=== PATIENT | male | born 1970 | race Caucasian/White ===

== ENCOUNTER 2020-09-07 21:07 | Emergency (ER) | payer OTHER, SELFPAY ==
[2020-09-07 21:13] VITALS: BP 181/94; PULSE 63; RESP 18; TEMP 36.6; O2SAT 99
--- NOTE | 2020-09-07 22:31 | PC.NURSE ---
pt walked out of facility, states he cant wait anymore. states he is going to another hospital. pt informed that he can return to the ED at any time for evaluation.
== END 2020-09-07 22:35 | disposition left against medical advice (07) ==
LOC: ANHED 22:55
PROVIDERS: PCP Internal Medicine
DX: T15.92XA Foreign body on external eye, part unspecified, left eye, initial encounter (principal)
CPT/HCPCS: 99199

== ENCOUNTER 2021-01-28 10:09 | Inpatient (IN) | payer SELFPAY ==
[2021-01-28] VITALS (12 sets, daily range): BP systolic 126–138; BP diastolic 57–92; PULSE 66–92; RESP 16–20; TEMP 35.7–38; O2SAT 96–100; BMI 27.7
--- NOTE | ~2021-01-28 | XR_ITS ---
EXAMINATION: XR elbow RT min 3V DATE: 01/28/2021 11:28 INDICATION: Erythema, swelling and limited range of motion. TECHNIQUE: Anteroposterior, two oblique and lateral views of the right elbow were obtained. COMPARISON: None. FINDINGS: Alignment is normal. No fracture. Joint spaces are normal. No cortical erosions. No right elbow joint effusion. Tiny olecranon enthesophyte. Subtle soft tissue calcifications along the medial and latera l epicondylar origins of the common flexor and extensor tendon wads respectively. Diffuse nonspecific soft tissue swelling with subcutaneous edema extending up to 10 cm approximately from the elbow and throughout the proximal to mid forearm. No radiopaque foreign bodies or soft tissue gas. IMPRESSION: 1. Nonspecific diffuse soft tissue swelling about the elbow extending from the distal upper arm throu gh the midforearm suggestive of cellulitis. No acute osseous abnormality, radiopaque foreign bodies o r soft tissue gas. 2. Likely enthesopathy with subtle calcification at the medial and lateral epicondylar origin of the common flexor and extensor tendon wads respectively. Reviewed, dictated and finalized at location B. IMPRESSION: 1. Nonspecific diffuse soft tissue swelling about the elbow extending from the distal upper arm through the midforearm suggestive of cellulitis. No acute osse ous abnormality, radiopaque foreign bodies or soft tissue gas. 2. Likely enthesopathy with subtle calcification at the medial and lateral epic ondylar origin of the common flexor and extensor tendon wads respectively.
--- NOTE | ~2021-01-28 | CT_ITS ---
EXAMINATION: CT UE RT wo con DATE: 01/30/2021 10:47 INDICATION: Right forearm cellulitis. TECHNIQUE: Computed tomography (CT) of the right upper limb was performed without intravenous contras t. Automated exposure control and iterative reconstruction technique were employed. The dose-length p roduct was 784.19 mGy-cm. COMPARISON: Right elbow radiographs 01/28/2021 FINDINGS: Bone alignment is normal. No fracture. 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 There are enthesophytes at the medial and lateral humeral epicondyles. No elbow joint effusion. Ther e is subcutaneous edema in the upper arm and forearm. IMPRESSION: 1. Extensive subcutaneous edema in right upper limb. No drainable fluid collection. Reviewed, dictated and finalized at location A. IMPRESSION: 1. Extensive subcutaneous edema in right upper limb. No drainable fluid collect ion.
[2021-01-28] MEDS: SODIUM CHLORIDE 0.9% IV 1,000 ML 999 ML IV CONT (11:05)
[2021-01-28] MEDS: MORPHINE SULFATE (*CRX) 4 MG/ML INJ IV PUSH (11:35)
[2021-01-28 11:42] LABS: Basophils Absolute Auto 0.1 K/mm3 (0.0-0.1); Basophils Percent Auto 0.5 % (0.2-1.2); Eosinophils Absolute Auto 0.1 K/mm3 (0-0.3); Eosinophils Percent Auto 1.4 % (0-4.4); Hematocrit 37.5 % (42.0-52.0); Hemoglobin 13.1 g/dL (14.0-18.0); Immature Granulocyte Absolute 0.03 K/mm3 (0.00-0.031); Immature Granulocyte Percent A 0.3 % (0-0.5); Lymphocytes Absolute Auto 0.94 K/mm3 (0.9-3.2); Lymphocytes Percent Auto 10.1 % (18.3-44.2); Mean Corpuscular HGB Conc 34.9 g/dl (32-36); Mean Corpuscular Volume 91.5 fl (80-100); Mean Platelet Volume 10.8 fl (7.4-10.4); Monocytes Absolute Auto 0.9 K/mm3 (0.1-0.6); Monocytes Percent Auto 9.4 % (2.6-8.5); Neutrophils Absolute Auto 7.3 K/mm3 (1.3-6.7); Neutrophils Percent Auto 78.3 % (45.5-73.1); Platelet Count Result 161 k/mm3 (150-375); Red Cell Distribution Width 11.9 % (11.5-14.5); White Blood Count 9.3 K/mm3 (4.5-10.0)
[2021-01-28 12:02] LABS: Alanine Aminotransferase 15 U/L (4-50); Albumin Level 3.7 g/dL (3.5-5.1); Alkaline Phosphatase 51 U/L (38-126); Anion Gap 4 mmol/L (8-16); Aspartate Amino Transferase 19 U/L (17-59); Bilirubin,Total 0.4 mg/dL (0.2-1.3); Blood Urea Nitrogen 17 mg/dL (9-20); Calcium 8.6 mg/dL (8.4-10.2); Carbon Dioxide 28 mmol/L (22-30); Chloride 107 mmol/L (98-107); Estimated CRCL calculation 107 ml/min; Estimated Glomerular Filt Rate > 60; Glucose 135 mg/dL (75-110); Potassium 4.1 mmol/L (3.4-5.0); Sodium 139 mmol/L (137-145)
[2021-01-28 12:08] LABS: Erythrocyte Sedimentation Rate 53 mm/hr (0-20)
[2021-01-28] MEDS: ceFAZolin 2 GM/D5W 50 ML 2 GM/50 ML BAG IVPB ×2 (12:32→22:23)
--- NOTE | 2021-01-28 12:34 | ED.GENADULT ---
HPI - General Adult General Chief complaint: Extremity Injury, Upper <Byron Lentz PA-C - Last Filed: 01/28/21 12:41> Stated complaint: elbow swelling <ELIZABET Duffy Last Filed: 01/28/21 12:41> Time Seen by Provider: 01/28/21 10:52 <ELIZABET Duffy Last Filed: 01/28/21 12:41> Source: patient <ELIZABET Duffy Last Filed: 01/28/21 12:41> Mode of arrival: ambulatory <Byron Lentz PA-C - Last Filed: 01/28/21 12:41> Limitations: no limitations <Byron Lentz PA-C - Last Filed: 01/28/21 12:41> History of Present Illness HPI narrative: Patient is a 50-year-old male who presents with red tender swollen right upper extremity at the level of the elbow began at the elbow and has worsened each day 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 Swelling began Wednesday. Patient denies fever vomiting similar occurrence in the past has not been seen for this complaint <Byron Lentz PA-C - Last Filed: 01/28/21 12:41> Related Data Home medications: Home Medications Medication Instructions Recorded Confirmed No Home Medications 01/28/21 01/28/21 <Byron Lentz PA-C - Last Filed: 01/28/21 12:41> Allergies/adverse reactions: Allergies Allergy/AdvReac Type Severity Reaction Status Date / Time No Known Allergies Allergy Unverified 04/22/12 23:59 <Byron Lentz PA-C - Last Filed: 01/28/21 12:41> Review of Systems Review of Systems: All systems reviewed & are unremarkable except as noted in HPI and below <Byron Lentz PA-C - Last Filed: 01/28/21 12:41> PMFSH Social History Social History: Social History Smoking status: Never smoker Alcohol intake: current Gender identity (if verbalized by the patient): Male <Byron Lentz PA-C - Last Filed: 01/28/21 12:41> Exam Narrative: Exam Narrative: GENERAL: Well-appearing, well-nourished, and in no acute distress. HEAD: Normocephalic, atraumatic. EYES: PERRLA and EOMI. ENT: Nares clear, no rhinorrhea or epistaxis. Mucous membranes moist. CHEST: Clear to auscultation. No respiratory distress. No wheezes rales or rhonchi HEART: Regular rate and rhythm. No murmur heard. Normal peripheral pulses. EXTREMITIES: Patient with erythematous red swollen tender region surrounding the elbow extending into the distal forearm and distal bicep SKIN: Warm, dry, no rash. NEURO: No focal deficits. Alert and oriented x3. Neurovascularly intact. Capillary refill less than 2-second PSYCH: Normal mood and affect. <Byron Lentz PA-C - Last Filed: 01/28/21 12:41> Course Course Emergency Course: Patient will be brought in the hospital for evaluation of what is felt to be likely septic bursitis with cellulitic component patient was started on Ancef and vancomycin will have orthopedic evaluation as well admitted to the hospitalist service. Patient is afebrile nontoxic-appearing no distress at this time <Byron Lentz PA-C - Last Filed: 01/28/21 12:41> OB/GYN DOCTOR/PA Physician Supervision Pt prresenting for elbow pain, noted to have erythema, edema at site with concern for septic bursitis. Orthopedic surgery consulted, pt started on antibiotics. Admitted to hospitalist. For this patient encounter, I reviewed the OB/GYN DOCTOR or PA documentation, treatment plan, and medical decision making; and I had [id number] time with this patient. <Brittnee Willingham MD - Last Filed: 01/28/21 13:36> Consultations Consultation #1: Discussed case with orthopedist Dr. Montano who will consult on patient would like IV antibiotics at this time agrees with Ancef and vancomycin <Byron Lentz PA-C - Last Filed: 01/28/21 12:41> Date: 01/28/21 <ELIZABET Duffy Last Filed: 01/28/21 12:41> Time: 12:38 <Byron Lentz PA-C - Last Filed: 01/28/21 12:41> Consultation #2: discusssed case with
[2021-01-28] MEDS: HYDROcodone/acetaminophen (*CRX) 5-325 MG TABLET 1 TAB PO ×2 (13:18→17:10)
--- NOTE | 2021-01-28 14:45 | PC.NURSE ---
This patient, Zeeshan Bassett, was admitted to [facility] Surg Room 313-01. Patient/family oriented to hospital policies and general routines including ID bracelet, bed and alarms, visiting hours, pain management, procedures, bathroom and other care routines, personal items, smoking policy, room service/diet, and visiting hours. Information on how to activate the Rapid Response Team has been discussed. Patient/Family are encouraged to report perceived risks to care and to ask questions if they do not understand what they are told or what they should do.
[2021-01-28] MEDS: LACTATED RINGERS 1,000 ML 125 ML IV CONT (15:23)
--- NOTE | 2021-01-28 16:30 | PM.IMHP ---
H&P: HPI History of Present Illness Date/Time: 01/28/21 16:30 Chief Complaint: Right elbow pain and swelling. Narrative: This is a 50-year-old male who presented to the emergency department earlier today via private vehicle from home for evaluation of right elbow pain and swelling. 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 His right elbow was sore when he got off work on Wednesday and he developed swelling and redness of the elbow shortly thereafter. His symptoms have gotten worse each day and he describes a constant tight and aching pain throughout his right upper extremity and sharp needle like pain in his elbow. The pain is worse with even light touch, movement, and bending of the joint. He gives no significant alleviating factors and his hardly gotten any relief from taking Aleve or naproxen. Additionally he has had some chills and a decrease in appetite. He has had some mild tingling in his fingers but denies overt numbness, skin color, and temperature changes of the right arm. He does not recall injuring the area and he denies open wounds and bites. He has no history of gout or or bursitis. He has never had surgery at that site. No history of MRSA. Review of Systems Review of Systems: Narrative: Twelve systems were reviewed with pertinent positives and negatives as per HPI. He denies fever. No cold or flu symptoms. No cough or shortness of breath. No chest pain. Denies nausea and vomiting. He has never had signs or symptoms of alcohol withdrawal. Except as documented, all other systems were reviewed and are negative. [facility] Past Medical History Medical History (Updated 01/29/21 @ 01:39 by Marielle Gomez PA-C) Obstructive sleep apnea Intolerant to CPAP. Surgical History Surgical History (Updated 01/28/21 @ 16:32 by Marielle Gomez PA-C) History of arthroscopy of left knee x2 Family History Family History (Updated 01/29/21 @ 01:37 by Marielle Gomez PA-C) Other No significant family history Social History Social History (Updated 01/29/21 @ 01:37 by Marielle Gomez PA-C) Social History: Surrogate decision maker: Allyson Serjio, spouse. Code status: Full code. Smoking status: Never smoker Alcohol intake: current Alcohol use details: He drinks 6 to 10 beers several days a week. Substance use: current Substance use type: marijuana Additional living arrangements comments: Lives in [place] with his . 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 Gender identity (if verbalized by the patient): Male Spiritual care concerns: No Meds Home Medications and Allergies Home Medications Medication Instructions Recorded Confirmed Type No Home Medications 01/28/21 01/28/21 History Allergies Allergy/AdvReac Type Severity Reaction Status Date / Time No Known Allergies Allergy Unverified 04/22/12 23:59 Vital Signs Vital Signs - 24 hr 01/28/21 10:11 01/28/21 10:37 01/28/21 10:45 Temperature 96.3 F L Pulse Rate 70 Respiratory Rate 16 Blood Pressure 129/86 Pulse Oximetry 100 100 99 01/28/21 10:51 01/28/21 11:00 01/28/21 12:19 Temperature Pulse Rate 66 92 72 Respiratory Rate 17 16 16 Blood Pressure 135/92 H 138/75 136/78 Pulse Oximetry 98 96 100 01/28/21 13:47 01/28/21 14:29 01/28/21 15:23 Temperature 99.4 F Pulse Rate 89 72 66 Respiratory Rate 18 16 18 Blood Pressure 129/75 136/78 126/57 L Pulse Oximetry 100 100 100 Exam Narrative: Exam Narrative: General: Well-developed male sitting up in bed no distress. Weight: 95.4 kilograms. BMI: 27.7. HEENT: PERRL, EOMI. Sclerae anicteric. Oral mucosa moist. Neck: Supple. Full sorensen. Respiratory: Lungs are clear to auscultation bilaterally. Cardiovascular: Regular rate and rhythm with S1-S2. Gastrointestinal: Abdomen is soft, nontender, and nondistended with positive bowel sounds.
--- NOTE | 2021-01-28 21:41 | PCRCNOTE ---
PT STATES THAT HE DOES NOT USE HIS CPAP AT HOME AND REFUSES TO USE HOSPITAL EQUIPMENT. MACEY LILLY AND THOMAS MCNEAL NOTIFIED.
[2021-01-28] MEDS: HYDROmorphone HCL INJ (*CRX) 1 MG/ML SYR 0.5 MG IV PUSH (22:39)
[2021-01-29] MEDS: HYDROcodone/acetaminophen (*CRX) 5-325 MG TABLET 1 TAB PO ×3 (03:29→17:27)
[2021-01-29] MEDS: ceFAZolin 2 GM/D5W 50 ML 2 GM/50 ML BAG IVPB ×3 (05:29→21:53)
[2021-01-29 06:00] VITALS: BP 131/68; PULSE 67; RESP 20; TEMP 38.2; O2SAT 98
[2021-01-29 06:24] LABS: Basophils Percent Auto 0.4 % (0.2-1.2); Eosinophils Absolute Auto 0.1 K/mm3 (0-0.3); Eosinophils Percent Auto 0.9 % (0-4.4); Hematocrit 35.5 % (42.0-52.0); Hemoglobin 12.3 g/dL (14.0-18.0); Immature Granulocyte Absolute 0.04 K/mm3 (0.00-0.031); Immature Granulocyte Percent A 0.4 % (0-0.5); Lymphocytes Absolute Auto 0.88 K/mm3 (0.9-3.2); Lymphocytes Percent Auto 8.6 % (18.3-44.2); Mean Corpuscular HGB Conc 34.6 g/dl (32-36); Mean Corpuscular Hemoglobin 32.2 pg (26-34); Mean Corpuscular Volume 92.9 fl (80-100); Mean Platelet Volume 10.9 fl (7.4-10.4); Monocytes Absolute Auto 1.1 K/mm3 (0.1-0.6); Monocytes Percent Auto 10.3 % (2.6-8.5); Neutrophils Absolute Auto 8.2 K/mm3 (1.3-6.7); Neutrophils Percent Auto 79.4 % (45.5-73.1); Platelet Count Result 138 k/mm3 (150-375); Red Blood Count 3.82 M/mm3 (4.6-6.20); White Blood Count 10.3 K/mm3 (4.5-10.0)
[2021-01-29 06:52] LABS: Alanine Aminotransferase 12 U/L (4-50); Albumin Level 3.1 g/dL (3.5-5.1); Alkaline Phosphatase 49 U/L (38-126); Anion Gap 12 mmol/L (8-16); Aspartate Amino Transferase 19 U/L (17-59); Bilirubin,Total 0.6 mg/dL (0.2-1.3); Blood Urea Nitrogen 7 mg/dL (9-20); Calcium 7.7 mg/dL (8.4-10.2); Carbon Dioxide 25 mmol/L (22-30); Chloride 96 mmol/L (98-107); Estimated CRCL calculation 122 ml/min; Estimated Glomerular Filt Rate > 60; Glucose 268 mg/dL (75-110); Magnesium 1.5 mg/dL (1.6-2.3); Potassium 3.2 mmol/L (3.4-5.0); Sodium 133 mmol/L (137-145)
--- NOTE | 2021-01-29 11:42 | PM.CNOR ---
Assessment and Plan Assessment and plan (1) Right arm cellulitis: Code(s): L03.113 - Cellulitis of right upper limb Status: Acute (2) Septic bursitis: Code(s): M71.10 - Other infective bursitis, unspecified site Status: Acute Assessment and Plan: 50-year-old right-handed male with cellulitis in his right elbow area and forearm. This appears to be extra-articular. There is some thickening of the olecranon bursa tissue without any gross fluctuance more consistent with edematous bursa. It may take a day or two for the redness to start to recede. At this point this does not look surgical however I did explain to him that that could change and will need to keep an eye on it. Following. History of Present Illness HPI Consult date: 01/29/21 Chief complaint: Septic bursitis, cellulitis Narrative: 50-year-old male who developed swelling and redness in his right arm over the weekend. Came to the emergency room yesterday was diagnosed with cellulitis in his arm. He had been started on Ancef and vanc. He complains of pain and stiffness in his right arm. No problems like this in the past. 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 Does not really recall an injury per se to the right elbow or forearm. [facility] Past Medical History Medical History Obstructive sleep apnea Intolerant to CPAP. Surgical History Surgical History History of arthroscopy of left knee x2 Family History Family History Other No significant family history Social History Social History Social History: Surrogate decision maker: Allyson Bassett, spouse. Code status: Full code. Smoking status: Never smoker Alcohol intake: current Alcohol use details: He drinks 6 to 10 beers several days a week. Substance use: current Substance use type: marijuana Additional living arrangements comments: Lives in [place] with his . 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 Gender identity (if verbalized by the patient): Male Spiritual care concerns: No Meds Home Medications and Allergies Home Medications Medication Instructions Recorded Confirmed Type No Home Medications 01/28/21 01/28/21 History Allergies Allergy/AdvReac Type Severity Reaction Status Date / Time No Known Allergies Allergy Unverified 04/22/12 23:59 Vital Signs Vital Signs - 24 hr 01/28/21 12:19 01/28/21 13:47 01/28/21 14:29 Temperature Pulse Rate 72 89 72 Respiratory Rate 16 18 16 Blood Pressure 136/78 129/75 136/78 Pulse Oximetry 100 100 100 01/28/21 15:23 01/28/21 20:00 01/28/21 21:41 Temperature 99.4 F Pulse Rate 66 80 Respiratory Rate 18 20 Blood Pressure 126/57 L Pulse Oximetry 100 99 98 01/28/21 22:00 01/29/21 06:00 Temperature 100.4 F H 100.7 F H Pulse Rate 80 67 Respiratory Rate 20 20 Blood Pressure 130/81 131/68 Pulse Oximetry 99 98 Exam Const: General: cooperative, comfortable and no acute distress Nutritional Appearance: well nourished (BMI 27.7) Extrem: Elbow/forearm/wrist images: 1. Swollen and erythematous Other: Grossly motor and sensory function right upper extremity is intact. With coaxing he has got just about full elbow and forearm range of motion. Neurovascular status to the right upper extremity grossly intact. Diffuse tenderness in the area of the right elbow and forearm that is erythematous. No fluctuance of the olecranon bursa but it is boggy. No open wounds nor any drainage. Radiology Reports: Comments: EXAMINATION: XR elbow RT min 3V DATE: 01/28/2021 11:28 INDICATION: Erythema, swelling and limited range of motion. TECHNIQUE: Anteroposterior, two oblique and lateral views of the right elbow were obtain
[2021-01-29 14:00] VITALS: BP 158/84; PULSE 74; RESP 16; TEMP 36.6; O2SAT 98
--- NOTE | 2021-01-29 16:38 | PM.IMPN ---
Progress Note: A&P Assessment and Plan (1) Septic bursitis: Code(s): M71.10 - Other infective bursitis, unspecified site Status: Acute Assessment and Plan: Patient appears to have septic bursitis with concomitant cellulitis. X-ray also shows enthesopathy. Continue Empiric antibiotics with cefazolin and vancomycin to cover strep and staph. Percocet ordered according to pain scale dosing NSAIDs available to help with inflammation and discomfort.. Dr. Montano (orthopedics) has been consulted and does not consider this to be a septic bursitis (2) Right arm cellulitis: Code(s): L03.113 - Cellulitis of right upper limb Status: Acute Assessment and Plan: Plan is as detailed above. Day 2 cefazolin and vancomycin. Subjective Date/time seen: 01/29/21 16:38 Patient complains of excruciating pain in his right upper extremity unable to move it with worsening redness and swelling since admission. He continues to have fever as well. Patient advised that he is early in his treatment and monitor him overnight if he does not improve consult ID Exam Narrative: Exam Narrative: General: Well-developed male sitting up in bed no distress. HEENT: EOMI. Sclerae anicteric. Oral mucosa moist. Neck: Supple. Full sorensen. Respiratory: Lungs are clear to auscultation bilaterally. Cardiovascular: Regular rate and rhythm with S1-S2. Gastrointestinal: Abdomen is soft, nontender, and nondistended with positive bowel sounds. No organomegaly. Skin: Warm and dry. Edema, erythema, and warmth surrounding the right elbow and extending mid bicep and to the right hand The hand is also swollen. Good capillary refill. He is neurovascular intact. Unable to bend the elbow due to pain. Extremities: No cyanosis or clubbing. Radial and pedal pulses intact. Neurological: Alert. Cranial nerves 2-12 are grossly intact. No gross focal deficits to casual conversation. Psychiatric: Pleasant and cooperative with normal mood and affect. Judgment and insight intact. Objective Data Vital Signs Vital Signs: Vital Signs - 24 hr 01/28/21 20:00 01/28/21 21:41 01/28/21 22:00 Temperature 100.4 F H Pulse Rate 80 80 Respiratory Rate 20 20 Blood Pressure 130/81 Pulse Oximetry 99 98 99 01/29/21 06:00 01/29/21 14:00 Temperature 100.7 F H 97.8 F Pulse Rate 67 74 Respiratory Rate 20 16 Blood Pressure 131/68 158/84 H Pulse Oximetry 98 98 Intake/Output Intake/Output: Intake & Output 01/26/21 01/27/21 01/28/21 01/29/21 23:59 23:59 23:59 23:59 Intake Total 2193 1930 Output Total 400 Balance 1793 1930 Meds/Results Medications: Active Medications Generic Name Dose Route Start Last Admin Trade Name Freq PRN Reason Stop Dose Admin Hydrocodone Bitart/Acetaminophen 1 tab 01/28/21 12:42 01/29/21 09:14 Hydrocodone/Acetaminophen (*Crx) 5-325 Mg Tablet PO 1 tab Q4H PRN Administration Pain Rated 4-6 Hydralazine HCl 25 mg 01/29/21 16:37 Hydralazine Hcl 25 Mg Tablet PO QID PRN Hypertension Hydromorphone HCl 0.5 mg 01/28/21 22:11 01/28/21 22:39 Hydromorphone Hcl Inj (*Crx) 1 Mg/Ml Syr IV PUSH 0.5 mg Q3H PRN Administration Pain Rated 7-10 Cefazolin Sodium 2 gm in 50 mls @ 100 mls/hr 01/28/21 21:00 01/29/21 13:56 Ancef 2 Gm/D5w 50 Ml IVPB Infused Q8HR JANET Infusion Dextrose 1,000 mls @ 100 mls/hr 01/28/21 12:42 Dextrose 5% 1,000 Ml IVPB PRN PRN Hypoglycemia Protocol Vancomycin HCl 1,500 mg in 500 mls @ 333.333 mls/hr 01/29/21 01:00 01/29/21 15:52 Vancomycin 1,500 Mg/D5w 500 Ml IVPB Infused Q12H JANET Infusion Magnesium Sulfate 2 gm in 50 mls @ 50 mls/hr 01/29/21 16:31 Magnesium Sulf 2 Gm/Water 50ml IVPB 01/29/21 17:30 ONCE ONE Ibuprofen 600 mg 01/28/21 16:47 Ibuprofen 600 Mg Tablet PO 01/31/21 16:48 Q6H PRN Pain 1-3 Ondansetron HCl 4 mg 01/28/21 12:42 Ondansetron Inj 4 Mg/2 Ml
[2021-01-29] MEDS: MAGNESIUM SULF 2 GM/WATER 50ML 2 GM/50 ML BAG IVPB (17:23)
[2021-01-29] MEDS: POTASSIUM CHLORIDE 20 MEQ PACKET (FOR LIQUID) 40 MEQ PO (17:23)
[2021-01-29 19:02] VITALS: BP 136/76
[2021-01-29 22:00] VITALS: BP 135/80; PULSE 68; RESP 20; TEMP 37.7; O2SAT 99
[2021-01-30 01:38] LABS: Vancomycin Trough 6.4 ug/mL (10.0-20.0)
[2021-01-30] MEDS: ceFAZolin 2 GM/D5W 50 ML 2 GM/50 ML BAG IVPB (05:20)
[2021-01-30 06:00] VITALS: BP 145/87; PULSE 67; RESP 20; TEMP 38.2; O2SAT 100
[2021-01-30 06:38] LABS: Estimated CRCL calculation 107 ml/min; Estimated Glomerular Filt Rate > 60
[2021-01-30] MEDS: HYDROcodone/acetaminophen (*CRX) 5-325 MG TABLET 1 TAB PO ×2 (09:43→21:40)
--- NOTE | 2021-01-30 11:29 | PM.IMPN ---
Progress Note: A&P Assessment and Plan (1) Septic bursitis: Code(s): M71.10 - Other infective bursitis, unspecified site Status: Acute Assessment and Plan: Patient appears to have septic bursitis with concomitant cellulitis. X-ray also shows enthesopathy. Continue Empiric antibiotics with cefazolin and vancomycin to cover strep and staph. Patient on day 3 length of stay continuing to have fevers will discontinue cefazolin and start ertapenem Consult ID for further recommendations Percocet ordered according to pain scale dosing Morphine p.r.n. ordered for breakthrough pain NSAIDs available to help with inflammation and discomfort.. Dr. Montano (orthopedics) has been consulted and does not consider this to be a septic bursitis CT right upper extremity does not reveal any fluid collections abscess fasciitis or other concerning findings (2) Right arm cellulitis: Code(s): L03.113 - Cellulitis of right upper limb Status: Acute Assessment and Plan: Plan is as detailed above. Day 3 cefazolin and vancomycin-> ertapenem and vancomycin Defer deescalation of antibiotics to the infectious disease physician. Time Spent With Patient Time with patient: Greater than 35 minutes Subjective Date/time seen: 01/30/21 11:29 Patient continues to complain of excruciating right upper extremity pain partially relieved with narcotic medication. He does not have significant improvement since admission despite elevation of extremity and antibiotic therapy. Additionally, he continues to have febrile episodes on day 3 length of stay. Exam Narrative: Exam Narrative: Exam Narrative: General: Well-developed male sitting up in bed no distress. HEENT: EOMI. Sclerae anicteric. Oral mucosa moist. Neck: Supple. Full sorensen. Respiratory: Lungs are clear to auscultation bilaterally. Cardiovascular: Regular rate and rhythm with S1-S2. Gastrointestinal: Abdomen is soft, nontender, and nondistended with positive bowel sounds. No organomegaly. Skin: Warm and dry. Edema, erythema, and warmth surrounding the right elbow and extending mid bicep and to the right hand The hand is also swollen. Objectively arm does appear to be improving redness decreased intensity, swelling decreasing, TTP decreasing . Good capillary refill. He is neurovascular intact. Unable to bend the elbow pain and swelling. Extremities: No cyanosis or clubbing. Radial and pedal pulses intact. Neurological: Alert. Cranial nerves 2-12 are grossly intact. No gross focal deficits to casual conversation. Psychiatric: Pleasant and cooperative with normal mood and affect. Judgment and insight intact. Objective Data Vital Signs Vital Signs: Vital Signs - 24 hr 01/29/21 14:00 01/29/21 19:02 01/29/21 22:00 Temperature 97.8 F 99.8 F H Pulse Rate 74 68 Respiratory Rate 16 20 Blood Pressure 158/84 H 136/76 135/80 Pulse Oximetry 98 99 01/30/21 06:00 Temperature 100.8 F H Pulse Rate 67 Respiratory Rate 20 Blood Pressure 145/87 H Pulse Oximetry 100 Intake/Output Intake/Output: Intake & Output 01/27/21 01/28/21 01/29/21 01/30/21 23:59 23:59 23:59 23:59 Intake Total 2193 3080 470 Output Total 400 600 Balance 1793 2480 470 Meds/Results Medications: Active Medications Generic Name Dose Route Start Last Admin Trade Name Freq PRN Reason Stop Dose Admin Hydrocodone Bitart/Acetaminophen 1 tab 01/28/21 12:42 01/30/21 09:43 Hydrocodone/Acetaminophen (*Crx) 5-325 Mg Tablet PO 1 tab Q4H PRN Administration Pain Rated 4-6 Hydralazine HCl 25 mg 01/29/21 16:37 Hydralazine Hcl 25 Mg Tablet PO QID PRN Hypertension Dextrose 1,000 mls @ 100 mls/hr 01/28/21 12:42 Dextrose 5% 1,000 Ml IVPB PRN PRN Hypoglycemia Protocol Vancomycin HCl 1,750 mg in 500 mls @ 250 mls/hr 01/30/21 02:00 01/30/21 02:59 Vancomycin 1,750 Mg/D5w 500 Ml IVPB 250 mls/hr Q12H JANET Administration Er
[2021-01-30 11:30] VITALS: BP 126/73
[2021-01-30] MEDS: ERTAPENEM 1 GM/NS 50 ML 1 GM/50 ML BAG IVPB (12:17)
[2021-01-30 12:20] LABS: Basophils Absolute Auto 0.1 K/mm3 (0.0-0.1); Basophils Percent Auto 0.5 % (0.2-1.2); Eosinophils Absolute Auto 0.1 K/mm3 (0-0.3); Eosinophils Percent Auto 0.5 % (0-4.4); Hematocrit 37.8 % (42.0-52.0); Hemoglobin 12.8 g/dL (14.0-18.0); Immature Granulocyte Absolute 0.06 K/mm3 (0.00-0.031); Immature Granulocyte Percent A 0.5 % (0-0.5); Mean Corpuscular HGB Conc 33.9 g/dl (32-36); Mean Corpuscular Hemoglobin 31.3 pg (26-34); Mean Corpuscular Volume 92.4 fl (80-100); Mean Platelet Volume 10.9 fl (7.4-10.4); Monocytes Percent Auto 7.7 % (2.6-8.5); Neutrophils Absolute Auto 11.3 K/mm3 (1.3-6.7); Neutrophils Percent Auto 84.8 % (45.5-73.1); Platelet Count Result 194 k/mm3 (150-375); Red Blood Count 4.09 M/mm3 (4.6-6.20); Red Cell Distribution Width 11.7 % (11.5-14.5); White Blood Count 13.3 K/mm3 (4.5-10.0)
[2021-01-30 12:30] LABS: Anion Gap 2 mmol/L (8-16); Blood Urea Nitrogen 8 mg/dL (9-20); Calcium 8.7 mg/dL (8.4-10.2); Carbon Dioxide 32 mmol/L (22-30); Chloride 102 mmol/L (98-107); Estimated CRCL calculation 107 ml/min; Estimated Glomerular Filt Rate > 60; Glucose 120 mg/dL (75-110); Sodium 136 mmol/L (137-145)
--- NOTE | 2021-01-30 12:55 | PM.PNORT ---
Progress Note: A&P Assessment and Plan (1) Right arm cellulitis: Code(s): L03.113 - Cellulitis of right upper limb Status: Acute (2) Septic bursitis: Code(s): M71.10 - Other infective bursitis, unspecified site Status: Acute Assessment and Plan: On IV antibiotics. Nothing surgical at this point. Following. Subjective Subjective Date/Time Seen: 01/30/21 12:55 Principal diagnosis: Right forearm cellulitis Interval history: Currently on IV antibiotics. Feeling better today. Exam Const: General: cooperative, comfortable and no acute distress Nutritional Appearance: well nourished Extrem: Other: Still has swelling in the forearm but not nearly as much tenderness. Seems like the erythema has receded somewhat. Objective Data Vital Signs Vital Signs: Vital Signs - 24 hr 01/29/21 14:00 01/29/21 19:02 01/29/21 22:00 Temperature 97.8 F 99.8 F H Pulse Rate 74 68 Respiratory Rate 16 20 Blood Pressure 158/84 H 136/76 135/80 Pulse Oximetry 98 99 01/30/21 06:00 01/30/21 11:30 Temperature 100.8 F H Pulse Rate 67 Respiratory Rate 20 Blood Pressure 145/87 H 126/73 Pulse Oximetry 100 Intake/Output Intake/Output: Intake & Output 01/27/21 01/28/21 01/29/21 01/30/21 23:59 23:59 23:59 23:59 Intake Total 2193 / 2193 3080 / 3080 470 / 470 Output Total 400 / 400 600 / 600 Balance 1793 / 1793 2480 / 2480 470 / 470 Meds/Results Medications: Active Medications Generic Name Dose Route Start Last Admin Trade Name Freq PRN Reason Stop Dose Admin Hydrocodone Bitart/Acetaminophen 1 tab 01/28/21 12:42 01/30/21 09:43 Hydrocodone/Acetaminophen (*Crx) 5-325 Mg Tablet PO 1 tab Q4H PRN Administration Pain Rated 4-6 Hydralazine HCl 25 mg 01/29/21 16:37 Hydralazine Hcl 25 Mg Tablet PO QID PRN Hypertension Dextrose 1,000 mls @ 100 mls/hr 01/28/21 12:42 Dextrose 5% 1,000 Ml IVPB PRN PRN Hypoglycemia Protocol Vancomycin HCl 1,750 mg in 500 mls @ 250 mls/hr 01/30/21 02:00 01/30/21 02:59 Vancomycin 1,750 Mg/D5w 500 Ml IVPB 250 mls/hr Q12H JANET Administration Ertapenem 1 gm in 50 mls @ 100 mls/hr 01/30/21 12:00 01/30/21 12:17 Invanz 1 Gm/Ns 50 Ml IVPB 100 mls/hr Q24H JANET Administration Ibuprofen 600 mg 01/28/21 16:47 Ibuprofen 600 Mg Tablet PO 01/31/21 16:48 Q6H PRN Pain 1-3 Morphine Sulfate 2 mg 01/30/21 11:20 Morphine Sulfate (*Crx) 2 Mg/Ml Inj IV PUSH Q4H PRN Breakthough Pain Ondansetron HCl 4 mg 01/28/21 12:42 Ondansetron Inj 4 Mg/2 Ml Vial IV PUSH Q4H PRN Nausea Radiology Results: ITS Impressions Elbow X-Ray 01/28/21 11:33 IMPRESSION: 1. Nonspecific diffuse soft tissue swelling about the elbow extending from the distal upper arm through the midforearm suggestive of cellulitis. No acute osseous abnormality, radiopaque foreign bodies or soft tissue gas. 2. Likely enthesopathy with subtle calcification at the medial and lateral epicondylar origin of the common flexor and extensor tendon wads respectively. Upper Extremity CT 01/30/21 10:48 IMPRESSION: 1. Extensive subcutaneous edema in right upper limb. No drainable fluid collection. Labs Labs: Laboratory Results - last 24 hr 01/30/21 01/30/21 01/30/21 00:41 05:48 11:50 WBC 13.3 H RBC 4.09 L Hgb 12.8 L Hct 37.8 L MCV 92.4 MCH 31.3 MCHC 33.9 RDW 11.7 Plt Count 194 MPV 10.9 H Immature Gran % (Auto) 0.5 Neut % (Auto) 84.8 H Lymph % (Auto) 6.0 L [place] % (Auto) 7.7 Eos % (Auto) 0.5 Baso % (Auto) 0.5 Lymph # (Auto) 0.80 L [place] # (Auto) 1.0 H Eos # (Auto) 0.1 Baso # (Auto) 0.1 Abs Immat Gran (auto) 0.06 H Absolute Neuts (auto) 11.3 H Absolute Nucleated RBC 0.0 Nucleated RBC % 0.0 Sodium Potassium Chloride Carbon Dioxide Anion Gap BUN Creatinine 0.80 Estim Creat Clear Calc 107
--- NOTE | 2021-01-30 13:20 | WPDINFPN2 ---
Progress Note: A&P Assessment and Plan (1) Right arm cellulitis: Code(s): L03.113 - Cellulitis of right upper limb Status: Acute Assessment and Plan: cellulitis of R arm, uncomplicated REC Needs BCs. Ancef and Vanc #3, 3-4 days more IV. Subjective Date/time seen: 01/30/21 13:20 Objective Data Vital Signs Vital Signs: Vital Signs - 24 hr 01/29/21 14:00 01/29/21 19:02 01/29/21 22:00 Temperature 36.6 C 37.7 C H Pulse Rate 74 68 Respiratory Rate 16 20 Blood Pressure 158/84 H 136/76 135/80 Pulse Oximetry 98 99 01/30/21 06:00 01/30/21 11:30 Temperature 38.2 C H Pulse Rate 67 Respiratory Rate 20 Blood Pressure 145/87 H 126/73 Pulse Oximetry 100 Intake/Output Intake/Output: Intake & Output 01/27/21 01/28/21 01/29/21 01/30/21 23:59 23:59 23:59 23:59 Intake Total 2193 3080 470 Output Total 400 600 Balance 1793 2480 470 Meds/Results Medications: Active Medications Generic Name Dose Route Start Last Admin Trade Name Freq PRN Reason Stop Dose Admin Hydrocodone Bitart/Acetaminophen 1 tab 01/28/21 12:42 01/30/21 09:43 Hydrocodone/Acetaminophen (*Crx) 5-325 Mg Tablet PO 1 tab Q4H PRN Administration Pain Rated 4-6 Hydralazine HCl 25 mg 01/29/21 16:37 Hydralazine Hcl 25 Mg Tablet PO QID PRN Hypertension Dextrose 1,000 mls @ 100 mls/hr 01/28/21 12:42 Dextrose 5% 1,000 Ml IVPB PRN PRN Hypoglycemia Protocol Vancomycin HCl 1,750 mg in 500 mls @ 250 mls/hr 01/30/21 02:00 01/30/21 02:59 Vancomycin 1,750 Mg/D5w 500 Ml IVPB 250 mls/hr Q12H JANET Administration Ibuprofen 600 mg 01/28/21 16:47 Ibuprofen 600 Mg Tablet PO 01/31/21 16:48 Q6H PRN Pain 1-3 Morphine Sulfate 2 mg 01/30/21 11:20 Morphine Sulfate (*Crx) 2 Mg/Ml Inj IV PUSH Q4H PRN Breakthough Pain Ondansetron HCl 4 mg 01/28/21 12:42 Ondansetron Inj 4 Mg/2 Ml Vial IV PUSH Q4H PRN Nausea Radiology Results: ITS Impressions Elbow X-Ray 01/28/21 11:33 IMPRESSION: 1. Nonspecific diffuse soft tissue swelling about the elbow extending from the distal upper arm through the midforearm suggestive of cellulitis. No acute osseous abnormality, radiopaque foreign bodies or soft tissue gas. 2. Likely enthesopathy with subtle calcification at the medial and lateral epicondylar origin of the common flexor and extensor tendon wads respectively. Upper Extremity CT 01/30/21 10:48 IMPRESSION: 1. Extensive subcutaneous edema in right upper limb. No drainable fluid collection. Labs Labs: Laboratory Results - last 24 hr 01/30/21 01/30/21 01/30/21 00:41 05:48 11:50 WBC 13.3 H RBC 4.09 L Hgb 12.8 L Hct 37.8 L MCV 92.4 MCH 31.3 MCHC 33.9 RDW 11.7 Plt Count 194 MPV 10.9 H Immature Gran % (Auto) 0.5 Neut % (Auto) 84.8 H Lymph % (Auto) 6.0 L [place] % (Auto) 7.7 Eos % (Auto) 0.5 Baso % (Auto) 0.5 Lymph # (Auto) 0.80 L [place] # (Auto) 1.0 H Eos # (Auto) 0.1 Baso # (Auto) 0.1 Abs Immat Gran (auto) 0.06 H Absolute Neuts (auto) 11.3 H Absolute Nucleated RBC 0.0 Nucleated RBC % 0.0 Sodium Potassium Chloride Carbon Dioxide Anion Gap BUN Creatinine 0.80 Estim Creat Clear Calc 107 Estimated GFR > 60 Glucose Calcium Vancomycin Trough 6.4 L 01/30/21 11:50 WBC RBC Hgb Hct MCV MCH MCHC RDW Plt Count MPV Immature Gran % (Auto) Neut % (Auto) Lymph % (Auto) [place] % (Auto) Eos % (Auto) Baso % (Auto) Lymph # (Auto) [place] # (Auto) Eos # (Auto) Baso # (Auto) Abs Immat Gran (auto) Absolute Neuts (auto) Absolute Nucleated RBC Nucleated RBC % Sodium 136 L Potassium 4.0 Chloride 102 Carbon Dioxide 32 H Anion Gap 2 L BUN 8 L Creatinine 0.80 Estim Creat Clear Calc 107 Estimated GFR > 60 Glucose 120 H Calcium 8.7 Vancomycin Trough
[2021-01-30 14:00] VITALS: BP 137/81; PULSE 67; RESP 16; TEMP 36.7; O2SAT 100
--- NOTE | 2021-01-30 19:22 | CONS_ITS ---
DATE OF CONSULTATION: 01/30/2021 REASON FOR CONSULTATION: Cellulitis. HISTORY OF PRESENT ILLNESS: A 50-year-old male who has no chronic medical illnesses. He has had no previous episodes of right arm infection. No previous vascular compromise. No previous surgeries nor trauma. 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 He knows of no skin trauma. He was healthy until 4 days prior to admission when he noted new onset of pain over the olecranon area when he returned home from work. The next day, redness and erythema were noted over the arm centered around the olecranon and the elbow anteriorly. Over the following 3 days, he had worsening pain in terms of extent along with worsening edema and erythema. He presented to the emergency room and was admitted on the . He has been given Ancef and vancomycin. Consultation now requested. He has been febrile while here. He had no fever, chills, or sweats at home. No recent antibiotics. No immunosuppressants. He has no loss of sensation or change of color in the hand or wrist. HABITS: Marijuana and binge drinking. PRESENT MEDICATIONS: See above. ALLERGIES: NONE KNOWN. PAST MEDICAL HISTORY: No chronic medical illnesses nor surgeries. REVIEW OF SYSTEMS: Constitutional. Skin, respiratory, musculoskeletal, GI otherwise negative. FAMILY HISTORY: Not pertinent to his present illness. SOCIAL HISTORY: . Lives locally. Works as above. PHYSICAL EXAMINATION: GENERAL: Middle-aged male, who appears younger than his actual age, in no distress. VITAL SIGNS: T-max 38.2, both this morning and yesterday morning, 145/87, 67, 20, 100% on room air. SKIN: Warm and dry. No erythroderma. No rashes. He has no ulcerations. EENT: Conjunctivae are normal. The oral mucosa is also normal. NECK: No masses, adenopathy. NODES: He has no axillary or epitrochlear adenopathy on the right. LUNGS: Clear to auscultation and percussion. CARDIAC: Regular rate and rhythm. No murmurs or gallops. Radial and ulnar pulses 2+ and equal. ABDOMEN: Nontender. No masses. No organomegaly. EXTREMITIES: Ankles have no edema. On the right, he has erythema and nonpitting edema of the right forearm and distal right upper arm. There is tenderness over the olecranon. There is no fluctuance. No sinus tracts. No areas of necrosis. LABORATORY DATA: No blood cultures have been done. His white count originally 9.3, now 13.3, hemoglobin 12.8, platelets 194. His BUN 8, creatinine 0.8. He has mild hyponatremia. Glucose 120. Liver function tests normal. CRP 6. Vancomycin trough subtherapeutic. RADIOLOGY: Plain films of the elbow, soft tissue swelling, enteropathy suspected. CT of the arm done today, subcutaneous edema, osteoarthritis. ASSESSMENT: 1. Cellulitis of the right upper extremity centered at the olecranon, but without apparent bursitis. This may have been soft tissue injury associated with his workplace. It is uncomplicated otherwise. 2. Fever due to the above. RECOMMENDATIONS: 1. He needs blood cultures. 2. Ancef and vancomycin appropriate day #3. 3. Probably will need 3 to 4 days more IV therapy. Dr. Montano also following for any needed surgical intervention. Thank you very much for asking me to see him. SERJIO VALENTINO M.D. BILINGUAL MANAGER BILINGUAL MANAGER D I MT: [facility]
[2021-01-30 21:49] VITALS: BP 134/82; PULSE 69; RESP 18; TEMP 37; O2SAT 98
[2021-01-30 22:18] VITALS: O2SAT 99
[2021-01-31 05:35] VITALS: BP 120/83; PULSE 61; RESP 18; TEMP 37.1; O2SAT 100
[2021-01-31 06:16] LABS: Anion Gap 5 mmol/L (8-16); Blood Urea Nitrogen 8 mg/dL (9-20); Calcium 8.6 mg/dL (8.4-10.2); Carbon Dioxide 28 mmol/L (22-30); Chloride 102 mmol/L (98-107); Estimated CRCL calculation 107 ml/min; Estimated Glomerular Filt Rate > 60; Glucose 152 mg/dL (75-110); Magnesium 2.1 mg/dL (1.6-2.3); Potassium 3.5 mmol/L (3.4-5.0); Sodium 135 mmol/L (137-145)
[2021-01-31] MEDS: IBUPROFEN 600 MG TABLET PO (08:21)
[2021-01-31 09:21] LABS: Basophils Absolute Auto 0.1 K/mm3 (0.0-0.1); Basophils Percent Auto 0.5 % (0.2-1.2); Eosinophils Absolute Auto 0.1 K/mm3 (0-0.3); Eosinophils Percent Auto 1.2 % (0-4.4); Hematocrit 38.6 % (42.0-52.0); Hemoglobin 13.3 g/dL (14.0-18.0); Immature Granulocyte Absolute 0.04 K/mm3 (0.00-0.031); Immature Granulocyte Percent A 0.4 % (0-0.5); Lymphocytes Percent Auto 8.4 % (18.3-44.2); Mean Corpuscular HGB Conc 34.5 g/dl (32-36); Mean Corpuscular Hemoglobin 31.6 pg (26-34); Mean Corpuscular Volume 91.7 fl (80-100); Mean Platelet Volume 11.1 fl (7.4-10.4); Monocytes Absolute Auto 0.8 K/mm3 (0.1-0.6); Monocytes Percent Auto 8.1 % (2.6-8.5); Neutrophils Absolute Auto 7.7 K/mm3 (1.3-6.7); Neutrophils Percent Auto 81.4 % (45.5-73.1); Platelet Count Result 210 k/mm3 (150-375); Red Blood Count 4.21 M/mm3 (4.6-6.20); Red Cell Distribution Width 11.8 % (11.5-14.5); White Blood Count 9.5 K/mm3 (4.5-10.0)
[2021-01-31 14:00] VITALS: BP 140/73; PULSE 54; RESP 16; TEMP 36.9; O2SAT 100
[2021-01-31 14:10] LABS: Vancomycin Trough 10.5 ug/mL (10.0-20.0)
--- NOTE | 2021-01-31 19:59 | PM.IMPN ---
Progress Note: A&P Assessment and Plan (1) Right arm cellulitis: Code(s): L03.113 - Cellulitis of right upper limb Status: Acute Assessment and Plan: Patient appears to have septic bursitis with concomitant cellulitis. X-ray also shows enthesopathy. Continue Empiric antibiotics with cefazolin and vancomycin to cover strep and staph. Patient on day 3 length of stay continuing to have fevers will discontinue cefazolin and start ertapenem Consult ID for further recommendations Percocet ordered according to pain scale dosing Morphine p.r.n. ordered for breakthrough pain NSAIDs available to help with inflammation and discomfort.. Dr. Montano (orthopedics) has been consulted and does not consider this to be a septic bursitis CT right upper extremity does not reveal any fluid collections abscess fasciitis or other concerning findings 01/30/21 Day 4 cefazolin and vancomycin Defer deescalation of antibiotics to the infectious disease physician. 01/31/[address] mejia and continues on cefazolin at lower dose and vancomycin Cellulitis continues to improve Anticipate discharge home in 24-48 hours depending on continued clinical improvement Time Spent With Patient Time with patient: 25 - 35 minutes Subjective Date/time seen: 01/31/21 19:59 Erythema from Cellulitis receding patient doing very well decrease pain increased movement of right upper extremity. Exam Narrative: Exam Narrative: GEN: NAD, AAOx3, cooperative HEENT: NCAT, MMM, EOMI Neck: no JVD Heart: S1S2 RRR Lungs: CTA B/l Abd: soft, NT, ND, bowel sounds normoactive Ext: Decreased range of motion in right upper extremity although improved from previous examination, no cyanosis, no clubbing, 1+ edema previously involving the hand now affecting arm proximally Objective Data Vital Signs Vital Signs: Vital Signs - 24 hr 01/30/21 21:49 01/30/21 22:18 01/31/21 05:35 Temperature 98.6 F 98.7 F Pulse Rate 69 61 Respiratory Rate 18 18 Blood Pressure 134/82 120/83 Pulse Oximetry 98 99 100 01/31/21 14:00 Temperature 98.4 F Pulse Rate 54 L Respiratory Rate 16 Blood Pressure 140/73 Pulse Oximetry 100 Intake/Output Intake/Output: Intake & Output 01/28/21 01/29/21 01/30/21 01/31/21 23:59 23:59 23:59 23:59 Intake Total 2193 3080 1920 1285 Output Total 432 897 1687 Balance 1793 2480 1920 185 Meds/Results Medications: Active Medications Generic Name Dose Route Start Last Admin Trade Name Freq PRN Reason Stop Dose Admin Hydrocodone Bitart/Acetaminophen 1 tab 01/28/21 12:42 01/30/21 21:40 Hydrocodone/Acetaminophen (*Crx) 5-325 Mg Tablet PO 1 tab Q4H PRN Administration Pain Rated 4-6 Hydralazine HCl 25 mg 01/29/21 16:37 Hydralazine Hcl 25 Mg Tablet PO QID PRN Hypertension Dextrose 1,000 mls @ 100 mls/hr 01/28/21 12:42 Dextrose 5% 1,000 Ml IVPB PRN PRN Hypoglycemia Protocol Vancomycin HCl 1,750 mg in 500 mls @ 250 mls/hr 01/30/21 02:00 01/31/21 15:14 Vancomycin 1,750 Mg/D5w 500 Ml IVPB 250 mls/hr Q12H JANET Administration Cefazolin Sodium 1 gm in 50 mls @ 100 mls/hr 01/30/21 14:00 01/31/21 14:40 Ancef 1 Gm/D5w 50 Ml Pm IVPB 100 mls/hr Q8HR JANET Administration Morphine Sulfate 2 mg 01/30/21 11:20 Morphine Sulfate (*Crx) 2 Mg/Ml Inj IV PUSH Q4H PRN Breakthough Pain Ondansetron HCl 4 mg 01/28/21 12:42 Ondansetron Inj 4 Mg/2 Ml Vial IV PUSH Q4H PRN Nausea Radiology Results: ITS Impressions Elbow X-Ray 01/28/21 11:33 IMPRESSION: 1. Nonspecific diffuse soft tissue swelling about the elbow extending from the distal upper arm through the midforearm suggestive of cellulitis. No acute osseous abnormality, radiopaque foreign bodies or soft tissue gas. 2. Likely enthesopathy with subtle calcification at the medial and lateral epicondylar origin of the common flexor and extensor tendon wads respectively. Upper
[2021-01-31] MEDS: HYDROcodone/acetaminophen (*CRX) 5-325 MG TABLET 1 TAB PO (20:43)
[2021-01-31 22:00] VITALS: BP 146/75; PULSE 66; RESP 18; TEMP 37.4; O2SAT 100
[2021-02-01] MEDS: HYDROcodone/acetaminophen (*CRX) 5-325 MG TABLET 1 TAB PO (03:08)
[2021-02-01 06:00] VITALS: BP 124/77; PULSE 60; RESP 18; TEMP 36.2; O2SAT 100
[2021-02-01 14:00] VITALS: BP 131/72; PULSE 60; RESP 16; TEMP 36.6; O2SAT 99
--- NOTE | 2021-02-01 16:26 | PM.DS ---
DS: Admitting Diagnosis Admitting Diagnosis Admitting Diagnosis: septic bursitis RUE cellulitis DS: Discharge Diagnosis Discharge Diagnosis (1) Right arm cellulitis: Code(s): L03.113 - Cellulitis of right upper limb Status: Acute Assessment and Plan: Patient appears to have septic bursitis with concomitant cellulitis. X-ray also shows enthesopathy. Continue Empiric antibiotics with cefazolin and vancomycin to cover strep and staph. Patient on day 3 length of stay continuing to have fevers will discontinue cefazolin and start ertapenem Consult ID for further recommendations Percocet ordered according to pain scale dosing Morphine p.r.n. ordered for breakthrough pain NSAIDs available to help with inflammation and discomfort.. Dr. Montano (orthopedics) has been consulted and does not consider this to be a septic bursitis CT right upper extremity does not reveal any fluid collections abscess fasciitis or other concerning findings 01/30/21 Day 3 cefazolin and vancomycin Defer deescalation of antibiotics to the infectious disease physician. 01/31/[address] mejia and continues on cefazolin at lower dose and vancomycin Cellulitis continues to improve Anticipate discharge home in 24-48 hours depending on continued clinical improvement 02/01/21 Patient continued to have significant clinical improvement he was discharged home in stable condition with indications to follow up with his primary care physician on Keflex DS: Summary Hospital Course Reason for hospitalization: Right upper extremity cellulitis Hospital Course: 50-year-old male admitted to the hospital with right upper extremity cellulitis have benign clinical course. Original concern for right septic bursitis and ortho was consulted. This was subsequently ruled out by expert opinion and confirmed on CT imaging. The infectious disease doctor pain or was also consulted and his recommendations were greatly appreciated. Patient was maintained on cefazolin and vancomycin throughout the hospitalization with significant improvement of cellulitis. Patient was subsequently discharged home in stable condition with indications to follow up with primary care physician on case flex 500 mg p.o. q.i.d. for 7 more days and ibuprofen 800 mg p.o. q.8 hours p.r.n. for pain relief. Time Spent with Patient Time attestation: Total time spent providing and/or coordinating discharge services: Exam Narrative: Exam Narrative: GEN: NAD, AAOx3, cooperative HEENT: NCAT, MMM, EOMI Neck: no JVD Heart: S1S2 RRR Lungs: CTA B/l Abd: soft, NT, ND, bowel sounds normoactive Ext: Improved range of motion in right upper extremity, no cyanosis, no clubbing, 1+ edema previously involving only the right elbow with erythema limited to that area as well. DS: Data Data Completed and Pending Labs on day of discharge: Preliminary micro results at discharge 01/30/21 13:54 Blood Culture - Preliminary Blood 01/30/21 13:51 Blood Culture - Preliminary Blood Discharge Plan Discharge Attending physician on discharge: Rosa Curran Consulting providers: Juan Montano ; Byron Lentz ; Brice Mejia Discharging Clinician: Rosa Curran Anticipated Discharge Date/Time: 02/01/21 16:19 Patient Disposition: Home, Self-Care Activity: unlimited Diet: regular Patient Instructions: Antibiotic Form, Cellulitis (GEN) Patient Language: Peruvian Stand Alone Forms: General Discharge Information Follow-up/Referrals: Johny Fernandez MD [Primary Care Provider] - Discharge Medications: New cephalexin 500 mg capsule 500 mg PO Q6H 7 Days Qty: 28 RF: 0 ibuprofen 800 mg tablet 800 mg PO TID PRN (Reason: pain) Qty: 20 RF: 0 Date of admission: 01/30/21 11:51 Primary Care Provider: Johny Fernandez Admitting Provider: Angelica Walker Attending physician on admission: Angelica Walker Condition: Improved Wally
== END 2021-02-01 18:50 | disposition home or self-care (01) | DRG 351 ==
LOC: ANHED 12:41 → ANH3MEDSUR 14:13
PROVIDERS: Emergency Medicine Emergency Medical Services; Admitting Provider Family Medicine; Emergency Provider Emergency Medicine; PCP Internal Medicine; Visit Provider Hospitalist
DX: M71.121 Other infective bursitis, right elbow (principal); L03.113 Cellulitis of right upper limb
CPT/HCPCS: 36415; 73080; 73200; 80048; 80053; 80202; 82565; 83735; 85025; 85652; 86140; 87040; 96361; 96365; 96366; 96367; 96375; 99285; A9270; G0378; G0379; J0690; J1170; J1335; J2270; J3370; J3475; J7030; J7120